=== PATIENT | male | born 1965 | race African-American/Black ===

== ENCOUNTER 2017-03-30 10:31 | Outpatient (CLI) | payer BC ==
[2017-03-30 11:33] LABS: ALT (SGPT) 28 U/L (8-55); AST (SGOT) 23 U/L (5-34); Alkaline Phosphatase 72 U/L (40-150); Anion Gap 13 mmol/L (10-20); BUN (Urea Nitrogen) 17 mg/dL (8.4-25.7); Bilirubin, Total 0.4 mg/dL (0.2-1.2); Calc. Creatinine Clearance 0 mL/min (70-130); Calcium 9.7 mg/dL (7.8-10.44); Carbon Dioxide 25 mmol/L (22-29); Chloride 107 mmol/L (98-107); Cholesterol 218 mg/dl (< 200 Desired); Estimated GFR-MDRD 83; Globulin 3.5 g/dL (2.4-3.5); LDL Cholesterol, Calculated 158 mg/dL
[2017-03-30 11:51] LABS: #Basophils 0.2 thou/uL (0.0-0.2); #Eosinphils 0.1 thou/uL (0.0-0.7); #Lymphocytes 1.8 thou/uL (1.20-3.40); #Monocytes 0.5 thou/uL (0.11-0.59); #Neutrophils 3.4 thou/uL (1.40-6.50); %Basophils 2.9 % (0.0-1.0); %Eosinophils 1.3 % (0.0-10.0); %Lymphocytes 29.6 % (21.0-51.0); %Monocytes 8.7 % (0.0-10.0); Hematocrit 44.9 % (42.0-52.0); Mean Platelet Volume 10.2 fL (7.4-10.4); Red Blood Cell (RBC) Count 5.24 mill/uL (4.70-6.10); White Blood Cell (WBC) Count 5.9 thou/uL (4.8-10.8)
[2017-03-30 14:09] LABS: Hemoglobin A1c 5.5 % (4.0-6.0)
--- NOTE | 2017-03-30 14:45 | RAD ---
RIGHT HAND 3 VIEWS: Date: 03/30/17 HISTORY: Pain. Patient hit his right hand on dog collar 3 weeks ago. Persistent distal third metacarpal pain. FINDINGS: No fracture. No cortical irregularity. Alignment is anatomic and the joint spaces are preserved. IMPRESSION: No fracture. POS: [id number]
--- NOTE | 2017-03-30 14:47 | RAD ---
4 VIEWS RIGHT KNEE: Date: 03/30/17 HISTORY: Acute right knee pain. Patient was training a football player. Patient felt a pop. FINDINGS: No joint effusion. Joint spaces are preserved. No fracture or malalignment. IMPRESSION: Unremarkable 4 views right knee. POS: [facility]
== END 2017-03-30 10:32 | disposition home or self-care (01) ==
LOC: SCSRAD 10:31
PROVIDERS: ATTEND Family Medicine
DX: Z00.00 Encounter for general adult medical examination without abnormal findings (principal); M79.641 Pain in right hand; M25.561 Pain in right knee
CPT/HCPCS: 36415; 80053; 80061; 83036; 84439; 84443; 85025; G0103